=== PATIENT | male | born 1950 | race Caucasian/White ===

== ENCOUNTER 2017-01-27 16:50 | Inpatient (IN) ==
[2017-01-27] MEDS ORDERED: ONDANSETRON 4 MG/2 ML VIAL IV PRN ×2 (17:17→18:28)
[2017-01-27] MEDS ORDERED: SODIUM CHLORIDE 0.9% 500 ML IV STA (17:17)
[2017-01-27] MEDS ORDERED: PANTOPRAZOLE 40 MG VIAL IV STA (17:17)
--- NOTE | 2017-01-27 17:32 | Emergency Department Note ---
Zana Crawford Brooke, am scribing for, and in the presence of, Socrates Oliveira MD 17:26 . Roxanne Crawford James D, MD, personally performed the services described in this documentation, ascribed by Geovanna Spann in my presence, and it is both accurate and complete 729 . Arrival - Arrival Chief Complaint: GI Bleed/Rectal Stated Complaint: black dark stool ED Nursing Triage Note: Pt states that he started having some black stool onset on Tuesday - pt states that he was seen and treated yesterday at Dr Choi - pt was told to come to ER per Dr Choi Mode of Arrival: Ambulatory Limitations: No Limitations Source: Patient, RN Notes Reviewed Time Seen by Provider: 01/27/17 17:18 - History of Present Illness HPI Narrative: Patient is a 66 year old male who presents to the ED with c/o melena that started on Tuesday. Patient says the melena got better on Tuesday but then came back Tuesday. He denies having any bright red blood. He saw Dr. Choi, yesterday, and had blood work and a chest x-ray done. Patient says he was told that he is "borderline anemic." Dr. Choi got Patient an appointment for Dr. Carlson to do a scope on Tuesday but Patient talked to Dr. Choi, today, and he was told to come to the ED. Patient denies taking any iron supplements or Pepto Bismol and says his stool is soft. Patient did take some BC powder over the weekend, however. He denies having any abdominal pain and does not have a history of stomach ulcers. He has no known medical problems. Patient say he does drink a six pack of beer on the weekends. He does not currently take any blood thinners. Onset (ago): day(s) (5) Allergies/Adverse Reactions: Allergies Allergy/AdvReac Type Severity Reaction Status Date / Time No Known Allergies Allergy Unverified 01/27/17 17:00 Review of System - Review of System 12 point system: reviewed and no additional remarkable complaints except as stated - Review of System Constitutional: Absent: fever Respiratory: Absent: respiratory distress Gastrointestinal: Present: melena. Absent: abdominal pain, hematochezia Skin: Absent: rash Medical,Surgical,& Family Hx - Medical History Gastrointestinal: History of: GERD - Social History Smoking Status: Current every day smoker Frequency of Alcohol Use: None Type of Drug Use: None Exam Vital Signs: Vital Signs Temperature 97.1 F L 01/27/17 17:00 Pulse Rate 82 01/27/17 17:00 Respiratory Rate 20 01/27/17 17:00 Blood Pressure 153/84 01/27/17 17:00 O2 Sat by Pulse Oximetry 99 01/27/17 17:00 GENERAL: This is a well-nourished well-developed white male in no apparent distress. VITAL SIGNS: Reviewed HEENT: Head is atraumatic and normocephalic. Pupils are equal round react to light. Extraocular movements are intact. Oropharynx is benign with moist mucous membranes. NECK: Neck is soft and supple without tenderness. There are no masses. There is no lymphadenopathy. LUNGS: Lungs are clear to auscultation. Chest rises symmetrically. There is no chest wall tenderness. CV: Heart is regular rate and rhythm without murmurs rubs or gallops. ABDOMEN: Abdomen is soft, nontender to palpation. There are no abdominal abnormal masses palpated. There is no organomegaly. Bowel sounds are present and active. Rectal: Good tone, no masses, melenic stool, heme positive. SKIN: Skin is warm and dry. No rash. EXTREMITIES: Patient has full range of motion without tenderness. There is no pedal edema. NEUROLOGIC: Awake alert and oriented 4. Cranial nerves II through XII are grossly intact. Motor is 5 over 5 in all extremities bilaterally. Course - Consultations Consultation #1: Discussed with hospitalist. Patient will be admitted to their service. Time: 17:44 Results - Labs Lab Results: I have reviewed the patients labs - Diagnostic Findings Procedure: Abdominal x-ray: image reviewed by me, Chest x-ray: image reviewed by me Disposition Clinical Impression: Acute upper GI bleed Case discussed with: patient Disposition: Still a Patient Condition: Guarded
[2017-01-27 17:42] LABS: Basophils # 0.1 10*3/uL (0.0-0.2); Eosinophils # 0.2 10*3/uL (0.0-0.87); Eosinophils % 2.9 % (0.00-10.9); Hematocrit 32.3 VOL% (42.0-52.0); Hemoglobin 11.1 GM/DL (14.0-18.0); Immature Granulocytes % 0.5 %; Immature Granulocytes Absolute 0.04 #; Lymphocytes # 2.2 10*3/uL (1.4-4.0); Lymphocytes % 27.2 % (21.2-54.2); Mean Corpuscular HGB Conc 34.4 GM/DL (32-36); Mean Corpuscular Hemoglobin 31 PG (27-34); Mean Corpuscular Volume 91.2 FL (87-102); Mean Platelet Volume 10.6 FL (9.6-12.0); Monocytes # 0.9 10*3/uL (0.11-0.8); Monocytes % 11.3 % (1.7-12.7); Neutrophils # 4.5 10*3/uL (1.4-7.4); Neutrophils % 57.1 % (38.7-73.9); Platelet Count 307 T/CUMM (130-400); Red Blood Count 3.54 MC/CUMM (3.8-5.5); Red Cell Distribution Width 16.2 % (9.3-17.3); White Blood Count 7.9 T/CUMM (4-12)
[2017-01-27 17:55] LABS: INR 0.9; PT Patient Result 9.6 SECS; Partial Thromboplastin Time 25.7 SECS (0-40)
[2017-01-27 18:02] LABS: Alanine Aminotransferase 21 U/L (16-61); Albumin 3.1 G/DL (3.4-5.0); Alkaline Phosphatase 68 U/L (45-117); Aspartate Amino Transferase 22 U/L (0-37); Bilirubin,Total < 0.39 MG/DL (0.2-1.0); Blood Urea Nitrogen 10 MG/DL (7-18); Calcium 8.8 MG/DL (8.5-10.1); Glucose 87 MG/DL (74-106); Osmolality,Calculated 270.8 MOS/KG (273-304); Potassium 3.5 MMOL/L (3.5-5.1); Sodium 137 MMOL/L (136-145); Total Protein 6.7 G/DL (6.4-8.3)
[2017-01-27] MEDS ORDERED: PANTOPRAZOLE 40 MG VIAL IV ONE (18:12)
--- NOTE | 2017-01-27 18:14 | EKG Report ---
Stationary ECG Study [facility] ER Test Date: 01/27/2017 6:12:13 PM Pat Name: JANET TAYLOR Department: Room: Gender: M Ramp Supervisor: : 1950 Requested by: Socrates Jean Order Number: [id number] Reading MD: JASON FELIX Intervals [place] Rate: 73 P: 37 UT: 171 QRS: -49 QRSD: 87 T: 37 QT: 400 QTc: 425 Interpretive Statements SINUS RHYTHM POSSIBLE RIGHT VENTRICULAR CONDUCTION DELAY LEFT ANTERIOR FASCICULAR BLOCK Electronically Signed On 01-27-17 20:21:42 CDT by JASON FELIX [email or web address]
[2017-01-27] MEDS ORDERED: ACETAMINOPHEN 325 MG TABLET PO PRN (18:28)
--- NOTE | 2017-01-27 18:30 | Hospitalist History & Physical ---
Assessment and Plan - Time spent with patient Time spent with patient: Greater than 30 minutes (1) Acute upper GI bleed Status: Acute Assessment and plan: H&H stable 11.1 & 32.3. Will admit: start IV fluids: consult GI. repeat a.m. labs. will discuss with Dr Wallace for further recommendations. Current Visit: Yes History of Present Illness Chief complaint: GI bleed History of present illness: Mr. Anton is a 66 year old white white male w/ PMHx GERD and smoker; presented to the ED for c/o dark stools since Tuesday. He reports going to Dr Choi office on Tuesday, labs were obtained and it was reported to him that everything looked good, maybe "borderline anemic". He called Dr Choi office today because he is still having very dark black semi-loose stools and was referred to the ED. Denies taking pepto. Patient denies shortness of breath, dizziness, chest pain, nausea, vomiting, fever or chills. He reports that he was setup for an appointment with DR Carlson for scope on Tuesday. In ED: H&H 11.1 & 32.3, INT 0.9; PT 9.6;Electrolytes within normal range. ADB xray and CXR is pending reports. After discussion with Dr Oliveira in the ED and Dr Wallace with Hospitalist Medicine, it was agreed to admit patient for further evaluation. Patient has no home medications to be reviewed. Allergies Allergy/AdvReac Type Severity Reaction Status Date / Time No Known Allergies Allergy Unverified 01/27/17 17:00 Medical,Surgical,& Family Hx - Medical History Gastrointestinal: History of: GERD - Social History Smoking Status: Current every day smoker Frequency of Alcohol Use: None Type of Drug Use: None Functional capacity: independent ambulation Review of systems: ROS completed and pertinent positives and negatives in the HPI Exam - Constitutional Vitals: Period Temp Pulse Resp BP Sys/Young Pulse Ox Last 24 Hr 97.1 F-97.1 F 80-85 15-20 129-167/78-84 99-100 General appearance: normal weight, no acute distress - Head Head exam: Present: normal inspection - Eye Eye exam: Present: EOMI Pupils: Present: TANNA - ENT ENT exam: Present: normal exam - Neck Neck exam: Present: normal inspection - Respiratory Respiratory exam: Present: clear to auscultation bilaterally. Absent: rhonchi, stridor, wheezes - Cardiovascular Cardiovascular exam: Present: regular rate and rhythm - GI/Abdominal GI/Abdominal exam: Present: normal bowel sounds, soft. Absent: tenderness, rebound - Extremities Exam Extremities exam: Present: normal inspection, full ROM. Absent: edema - Neurological Exam Neurological exam: Present: alert, oriented X3, CN II-XII intact - Psychiatric Psychiatric exam: Present: normal affect, normal mood. Absent: agitated, anxious - Skin Skin exam: Present: normal color, warm, dry Results - Labs CBC & BMP: 01/27/17 17:33 01/27/17 17:33 Lab Results: I have reviewed the past 24 hour labs - Diagnostic Findings Procedure: Abdominal x-ray: pending (waiting report), Chest x-ray: pending ( waiting report)
--- NOTE | 2017-01-27 18:51 | XRay Report ---
XR chest 1V portable Indication: Shortness of breath Comparison: Chest x-ray 08/19/2008. Technique: Portable AP chest was performed. Findings: Borderline cardiomegaly is demonstrated. Central vasculature is stable compared to prior study. This been interval increase in linear interstitial markings in the mid to lower lungs bilaterally. Bones and soft tissues are stable. Impression: 1. Interval worsening of interstitial edema could be considered. 01/27/2017 6:48 PM PROCEDURE INTERPRETED AT [facility] DEPARTMENT OF RADIOLOGY Final Report Signed by: Dr. Prosper Lopez
--- NOTE | 2017-01-27 18:51 | XRay Report ---
XR abdomen complete w decub Indication: Abdominal pain. Comparison: None. Technique: Supine AP abdomen as well as left lateral decubitus image of the abdomen was submitted. Findings: Lung bases are clear. No free intraperitoneal air is suggested. No organomegaly suggested. The bowel gas pattern demonstrates no evidence of acute pathology. Bones and soft tissues demonstrate no evidence of acute pathology. Impression: 1. No active process is demonstrated within the abdomen or pelvis. 01/27/2017 6:47 PM PROCEDURE INTERPRETED AT [facility] DEPARTMENT OF RADIOLOGY Final Report Signed by: Dr. Prosper Lopez
[2017-01-27] MEDS: SODIUM CHLORIDE 0.9% 1,000 ML IV SCH (18:57)
[2017-01-27 20:01] LABS: Basophils # 0.1 10*3/uL (0.0-0.2); Basophils % 0.9 % (0.0-0.8); Eosinophils # 0.2 10*3/uL (0.0-0.87); Eosinophils % 2.6 % (0.00-10.9); Hematocrit 29.9 VOL% (42.0-52.0); Immature Granulocytes % 0.5 %; Immature Granulocytes Absolute 0.04 #; Lymphocytes # 1.8 10*3/uL (1.4-4.0); Lymphocytes % 21.8 % (21.2-54.2); Mean Corpuscular HGB Conc 33.4 GM/DL (32-36); Mean Corpuscular Hemoglobin 31 PG (27-34); Mean Corpuscular Volume 92.6 FL (87-102); Mean Platelet Volume 10.6 FL (9.6-12.0); Monocytes # 0.7 10*3/uL (0.11-0.8); Monocytes % 7.9 % (1.7-12.7); Neutrophils # 5.5 10*3/uL (1.4-7.4); Neutrophils % 66.3 % (38.7-73.9); Platelet Count 282 T/CUMM (130-400); Red Blood Count 3.23 MC/CUMM (3.8-5.5); Red Cell Distribution Width 16.3 % (9.3-17.3); White Blood Count 8.2 T/CUMM (4-12)
[2017-01-27] MEDS: ZALEPLON 5 MG CAPSULE PO PRN (20:27)
[2017-01-27 20:29] LABS: Folate 8.5 NG/ML (5.4-24.0); Vitamin B12 246 PG/ML (211-911)
[2017-01-27 21:15] LABS: Sedimentation Rate-Westergren 44 MM/HR (0-20)
[2017-01-27 23:13] LABS: Hematocrit 27.1 VOL% (42.0-52.0); Hemoglobin 9.3 GM/DL (14.0-18.0)
[2017-01-28 06:11] LABS: Basophils # 0.1 10*3/uL (0.0-0.2); Eosinophils # 0.2 10*3/uL (0.0-0.87); Eosinophils % 3.8 % (0.00-10.9); Hematocrit 28.6 VOL% (42.0-52.0); Hematocrit 28.8 VOL% (42.0-52.0); Hemoglobin 9.7 GM/DL (14.0-18.0); Hemoglobin 9.8 GM/DL (14.0-18.0); Immature Granulocytes % 0.3 %; Immature Granulocytes Absolute 0.02 #; Lymphocytes # 1.6 10*3/uL (1.4-4.0); Lymphocytes % 27.9 % (21.2-54.2); Mean Corpuscular Hemoglobin 31 PG (27-34); Mean Corpuscular Volume 90.6 FL (87-102); Monocytes # 0.6 10*3/uL (0.11-0.8); Monocytes % 10.4 % (1.7-12.7); Neutrophils # 3.3 10*3/uL (1.4-7.4); Neutrophils % 56.6 % (38.7-73.9); Platelet Count 296 T/CUMM (130-400); Red Blood Count 3.18 MC/CUMM (3.8-5.5); Red Cell Distribution Width 16.1 % (9.3-17.3); White Blood Count 5.8 T/CUMM (4-12)
[2017-01-28 06:40] LABS: Calcium 8.6 MG/DL (8.5-10.1); Osmolality,Calculated 280.1 MOS/KG (273-304); Potassium 3.6 MMOL/L (3.5-5.1)
[2017-01-28 08:11] LABS: Hemoglobin A2 (Alkaline) 2.3 % (1.5-3.5)
[2017-01-28] MEDS: SODIUM CHLORIDE 0.9% 1,000 ML IV SCH ×2 (08:15→22:45)
[2017-01-28 08:16] LABS: Hemoglobin A1 (Alkaline) 97.7 % (96.5-98.5)
[2017-01-28] MEDS: PANTOPRAZOLE 40 MG VIAL IV SCH (08:16)
--- NOTE | 2017-01-28 10:28 | Gastrointestinal Consult Note ---
<Chata Navas - Last Filed: 01/28/17 10:36> Assessment and Plan (1) Melena Status: Acute Assessment and plan: 01/28-one-week history of melanoma with associated fatigue however no other complaints. H&H stable at 03/17 with no overt bleeding. Check stools for occult blood. Patient has prior schedule EGD for Tuesday of next week with Dr. Carlson. Check daily H&H. Proceed with EGD today to further evaluate. Plan and addendum to follow by Dr Carlson. Current Visit: Yes History of Present Illness Chief complaint: Melena History of present illness: Mr. Anton is a 66 year old male who was admitted to the hospital on yesterday with findings of anemia and reports of melena patient. Patient states that for the past week he has begun to notice that his stools become progressively darker. He denies any hematochezia associated with this but states that his stools have changed color since Tuesday. He has no prior history of GI bleeding in the past. He denies taking any iron supplements or Pepto-Bismol. Patient denies any recent weight loss, fever or chills. He denies any abdominal pain, nausea or vomiting associated with this. He states other than feeling somewhat fatigued over the last several days that he has had no other associated symptoms. He denies any dyspepsia, dysphagia. Patient presented to Dr. Gregg's office on Tuesday and had lab work done with no abnormalities other than report of being borderline anemic. He called Dr. Gregg's office back on yesterday and informed him of the change in his stool and he was scheduled for an EGD on next Tuesday with Dr. Carlson. However after this was scheduled patient was then advised to come to the emergency room for further evaluation. Patient states that he smokes approximately half a pack of cigarettes a day and drinks on a regular basis however sometimes not every day. He denies any prior history of having stomach ulcers. He denies having any upper scopes done in the past. His last colonoscopy was noted in 2005 with a history of diverticulitis which required percutaneous drainage with findings at that time of diverticulosis and polyps (serrated tubular adenoma). H&H is 03/17 with no elevation in BUN/ creatinine ratio, currently at 10. Home Medications Medication Instructions Recorded Confirmed Type Pantoprazole Tab [Protonix Tab] 40 mg PO DAILY 01/27/17 01/27/17 History Allergies Allergy/AdvReac Type Severity Reaction Status Date / Time No Known Allergies Allergy Unverified 01/27/17 17:00 Medical,Surgical,& Family Hx - Medical History Cardio: Comment Only: Cardiovascular Problems (Right DVT 5 years ago) Gastrointestinal: History of: GERD - Social History Smoking Status: Current every day smoker Frequency of Alcohol Use: None Type of Drug Use: None 12 point system: reviewed and no additional remarkable complaints except as stated - Constitutional Constitutional: Present: as per HPI - EENT Eyes: Present: as per HPI Ears: Present: as per HPI Nose, mouth and throat: Present: as per HPI - Cardiovascular Cardiovascular: Present: as per HPI - Respiratory Respiratory: Present: as per HPI - Gastrointestinal Gastrointestinal: Present: as per HPI, melena - Genitourinary Genitourinary: Present: as per HPI - Musculoskeletal Musculoskeletal: Present: as per HPI - Neurological Neurological: Present: as per HPI - Psychiatric Psychiatric: Present: as per HPI - Endocrine Endocrine: Present: as per HPI - Hematologic/Lymphatic Hematologic/Lymphatic: Present: as per HPI Exam - Constitutional Vitals: Period Temp Pulse Resp BP Sys/Young Pulse Ox Last 24 Hr 97.1 F-98.5 F 67-85 11-20 94-167/53-84 93-100 General appearance: normal weight, no acute distress - Head Head exam: Present: normal inspection, normocephalic - Eye Eye exam: Present: other (Lids and conjunctivae are unremarkable). Absent: scleral icterus - ENT ENT exam: Present: normal exam, normal oropharynx - Neck Neck exam: Present: normal inspection - Respiratory Respiratory exam: Present: clear to auscultation bilaterally. Absent: rales, rhonchi, wheezes - Cardiovascular Cardiovascular exam: Present: regular rate and rhythm. Absent: diastolic murmur , JVD, systolic murmur - GI/Abdominal GI/Abdominal exam: Present: normal bowel sounds, soft. Absent: ascites, distended, mass, organomegaly, tenderness - Extremities Exam Extremities exam: Present: normal inspection, full ROM - Back Exam Back exam: Present: normal inspection - Neurological Exam Neurological exam: Present: alert, oriented X3 - Psychiatric Psychiatric exam: Present: normal affect, normal mood - Skin Skin exam: Present: normal color, warm, dry Results - Labs CBC & BMP: 01/28/17 05:35 01/28/17 05:35 Lab Results: I have reviewed the past 24 hour labs Quality Measures - VTE Contraindication to Pharmacological VTE Prophylaxis: Active Bleeding <Gilbert Carlson - Last Filed: 01/28/17 14:22> History of Present Illness History of present illness: Mr. Anton is a 66 year old male Exam - Constitutional Vitals: Period Temp Pulse Resp BP Sys/Young Pulse Ox Last 24 Hr 97.1 F-98.5 F 67-85 11-20 94-167/53-84 93-100 Results - Labs CBC & BMP: 01/28/17 05:35 01/28/17 05:35
[2017-01-28] MEDS ORDERED: LIDOCAINE 1% 5 ML VIAL ONE (14:21)
[2017-01-28] MEDS ORDERED: PROPOFOL 200 MG/20 ML VIAL IV ONE (14:21)
--- NOTE | 2017-01-28 14:24 | History and Physical Update ---
History and Physical Update - History and Physical H&P was reviewed, the patient examined and there: are no changes in the patients condition since last H&P was completed. - Physical Exam Mental Status: alert and oriented Heart: regular rate and rhythm Lung: clear to auscultation Abdomen: within normal limits Vitals: within normal limits
--- NOTE | 2017-01-28 14:54 | Operative Note ---
Date of procedure: 01/28/17 Pre-op diagnosis: GI bleed with melena Procedure: Procedure: Esophagogastroduodenoscopy Brief clinical abstract: Patient is a 66-year-old male who presents with weakness and recent melena over the last few days. He has had no hematemesis. Hemoglobin was 9 on admission. Indication for procedure: GI bleed with melena Endoscopic findings:[After informed consent was obtained, the patient was placed in the left lateral decubitus position. The gastroscope was inserted in the upper esophagus under direct vision with no resistance encountered. Esophageal mucosa appeared normal with squamocolumnar junction sharply demarcated above a small hiatal hernia. The endoscope was advanced in the stomach which was carefully examined including retroflexed view of the cardia and fundus. There was a moderate amount of bright red blood with some clot in the proximal fundus of the stomach. This was all washed and suctioned to allow good exam. Patient has some prominence of the area gastricae pattern in the stomach. We spent over 20 minutes carefully examining the stomach and no bleeding source was identified. The pyloric channel, duodenal bulb, second and third portion of the duodenum appeared normal. The endoscope was withdrawn back into the stomach and then removed. He appeared to tolerate the procedure well. Impression: #1 probable bleeding source in proximal stomach-vascular lesion/ Dieulafoy's suspected with inability to visualize #2 prominent area gastricae pattern-could indicate portal hypertension Recommendations: Keep on clear liquids and follow clinically for now. If rebleeds, he will need repeat EGD. Anesthesia: MAC Surgeon / Physician: Gilbert Carlson Estimated blood loss: minimal Specimens: none sent Condition: stable Disposition: post procedure unit Results - Labs CBC & BMP: 01/28/17 05:35 01/28/17 05:35 Discharge Plan - Discharge Medications No Action Pantoprazole Tab [Protonix Tab] 40 mg PO DAILY - Follow Up or Referral - Forms/Instructions
--- NOTE | 2017-01-28 15:01 | Anesthesia Post-Op ---
Anesthesia Post OP - Post Ansesthetic Evaluation Patient seen in post op: Yes Resp: within normal limits CV: within normal limits Mental: within normal limits Temp: within normal limits Apbr-Oi-Pbpukjumi: within normal limits Nausea and Vomiting: within normal limits Pain: within normal limits
--- NOTE | 2017-01-28 16:24 | Hospitalist Progress Note ---
Assessment and Plan (1) Acute upper GI bleed Status: Acute Assessment and plan: The patient had vascular lesions found in the stomach on EGD. We will observe the patient again tonight for further bleeding and perhaps he could go home tomorrow. Current Visit: Yes Hospitalist: Subjective Interval history: The patient is found to have some vascular lesions in the stomach. This is apparently the cause of his hematemesis. The patient had esophagogastroduodenoscopy today. There has not been any further bleeding noted. Exam - Constitutional Vitals: Period Temp Pulse Resp BP Sys/Young Pulse Ox Last 24 Hr 97.1 F-98.5 F 66-85 11-20 93-167/53-84 93-100 General appearance: no acute distress - Respiratory Respiratory exam: Present: clear to auscultation bilaterally - Cardiovascular Cardiovascular exam: Present: regular rate and rhythm Results - Labs CBC & BMP: 01/28/17 05:35 01/28/17 05:35 Lab Results: I have reviewed the past 24 hour labs Quality Measures - VTE Contraindication to Pharmacological VTE Prophylaxis: Active Bleeding
[2017-01-28] MEDS: ZALEPLON 5 MG CAPSULE PO PRN (20:40)
[2017-01-29] MEDS: PANTOPRAZOLE 40 MG VIAL IV SCH (08:27)
[2017-01-29] MEDS: SODIUM CHLORIDE 0.9% 1,000 ML IV SCH (09:44)
--- NOTE | 2017-01-29 12:21 | Hospitalist Progress Note ---
Assessment and Plan (1) Acute upper GI bleed Status: Acute Assessment and plan: The patient had vascular lesions found in the stomach on EGD. We will observe the patient again tonight for further bleeding and anticipate he will go home tomorrow. Current Visit: Yes Hospitalist: Subjective Interval history: The patient has no new bleeding stigmata. The patient was seen to have a vascular lesion of the stomach on Tuesday at EGD. The patient has been on clear liquid diet and I am going to advance to a soft diet. If blood counts are stable tomorrow anticipate discharge home with outpatient follow-up scope in a couple of weeks. Exam - Constitutional Vitals: Period Temp Pulse Resp BP Sys/Young Pulse Ox Last 24 Hr 97.6 F-97.9 F 66-99 12-20 93-137/59-81 97-100 General appearance: no acute distress - Respiratory Respiratory exam: Present: clear to auscultation bilaterally - Cardiovascular Cardiovascular exam: Present: regular rate and rhythm - GI/Abdominal GI/Abdominal exam: Present: normal bowel sounds Results - Labs CBC & BMP: 01/28/17 05:35 01/28/17 05:35 Lab Results: I have reviewed the past 24 hour labs Quality Measures - VTE Contraindication to Pharmacological VTE Prophylaxis: Active Bleeding
--- NOTE | 2017-01-29 14:40 | Gastrointestinal Progress Note ---
Assessment and Plan - Time spent with patient Time spent with patient: Greater than 30 minutes (1) Acute upper GI bleed Status: Acute Current Visit: Yes (2) Other specified counseling Status: Acute Current Visit: Yes Exam (Progress Note) - Constitutional Vitals: Period Temp Pulse Resp BP Sys/Young Pulse Ox Last 24 Hr 97.6 F-98.2 F 66-99 12-20 93-150/59-81 95-100 Results - Labs CBC & BMP: 01/28/17 05:35 01/28/17 05:35 Note Addendum: PLEASE NOTE -- automatic citation of patient information is unavoidable in this electronic note. I have made a reasonable effort to review the information cited , but it is not a part of my evaluation, impression, or recommendation unless specifically discussed in the dictated text that follows. As well, voice recognition software was used in the creation of this clinical note. Reasonable effort was made to identify and correct gross errors. Despite proofreading, errors in bi data architect may be present, including nonsense verbiage at times. If you encounter such an error, please contact me at for discussion and correction. -- Tori Chief complaint: upper gastrointestinal bleeding Subjective: the patient is a 66-year-old male seen for follow-up of upper gastrointestinal bleeding. He underwent upper endoscopy yesterday with Dr. Carlson with finding of a possible Dieulafoy lesion in the proximal stomach and diffuse gastritis as well as bright red blood and blood clot. Unfortunately , no active bleeding source was identified. Overnight, one bowel movement was reported with dark stool but no overt bleeding, likely representing old blood. The patient is taking oral nutrition without difficulty. Medications: Tylenol, [place], Zofran, Protonix, [place] Review of Symptoms: 12 point review of symptoms was negative except as noted above Physical examination: Vital Signs: Current vital signs reviewed. General Appearance: well-appearing. Not acutely ill. Head: Normocephalic. Eyes: no scleral icterus. No scleral injection. No conjunctival pallor. Oral Cavity: Odor of breath was normal. No drooling was observed. Lips showed no abnormalities. Lungs: Respiration rhythm and depth was normal. Cardiovascular: Heart rate and rhythm were normal. Abdomen: abdomen was not distended. Abdominal auscultation revealed no abnormalities. Ascites was not discovered. Abdominal palpation revealed no tenderness and no hepatosplenomegaly. Musculoskeletal System: musculoskeletal system was grossly normal. Neurological: level of consciousness was normal. Speech was normal. No coordination/cerebellum abnormalities were noted. Skin: Gen. appearance was normal. Color and pigmentation were normal. No skin lesions were appreciated. Laboratory: what blood count 5.8, hemoglobin 9.7, platelets 296, INR 0.9, ALT 21 , AST 22, alkaline phosphatase 68, albumin 3.1 Radiology: reviewed Impressions: 1. Upper gastrointestinal bleeding -- the patient has remained stable overnight with no overt bleeding. I recommend continued proton pump inhibitor, continued volume management, monitoring blood counts, and transfusion as indicated. If stable, it would be reasonable to discharge tomorrow. 2. Other specified counseling -- Patient seen for greater than 30 minutes. Greater than 50% of this time was spent counseling regarding differential diagnosis, likely diagnosis,, diagnostic and therapeutic options, risks, benefits, and alternatives to procedures and medications, informed consent, and plan of care generally. Patient has expressed understanding and wishes to proceed. Recommendations: -- continued volume management -- continue proton pump inhibitor -- monitor blood counts and transfuse as indicated -- we will continue to follow with you
[2017-01-29] MEDS: ZALEPLON 5 MG CAPSULE PO PRN (20:41)
[2017-01-30 06:32] LABS: Basophils # 0.1 10*3/uL (0.0-0.2); Basophils % 0.9 % (0.0-0.8); Eosinophils # 0.3 10*3/uL (0.0-0.87); Eosinophils % 4.2 % (0.00-10.9); Hematocrit 25.6 VOL% (42.0-52.0); Hemoglobin 8.6 GM/DL (14.0-18.0); Immature Granulocytes % 0.4 %; Immature Granulocytes Absolute 0.03 #; Lymphocytes # 2.3 10*3/uL (1.4-4.0); Mean Corpuscular HGB Conc 33.6 GM/DL (32-36); Mean Corpuscular Hemoglobin 31 PG (27-34); Mean Corpuscular Volume 92.4 FL (87-102); Mean Platelet Volume 11.3 FL (9.6-12.0); Monocytes # 0.7 10*3/uL (0.11-0.8); Monocytes % 9.6 % (1.7-12.7); Neutrophils % 53.9 % (38.7-73.9); Platelet Count 325 T/CUMM (130-400); Red Blood Count 2.77 MC/CUMM (3.8-5.5); Red Cell Distribution Width 16.3 % (9.3-17.3); White Blood Count 7.4 T/CUMM (4-12)
[2017-01-30 07:05] LABS: Calcium 8.5 MG/DL (8.5-10.1); Magnesium 2.1 MG/DL (1.8-2.4); Potassium 3.6 MMOL/L (3.5-5.1)
[2017-01-30] MEDS ORDERED: PANTOPRAZOLE 40 MG TABLET PO SCH (09:00)
[2017-01-30] MEDS: PANTOPRAZOLE 40 MG TABLET PO SCH (09:27)
--- NOTE | 2017-01-30 09:50 | Gastrointestinal Progress Note ---
Assessment and Plan (1) Acute upper GI bleed Status: Acute Current Visit: Yes (2) Other specified counseling Status: Acute Current Visit: Yes Exam (Progress Note) - Constitutional Vitals: Period Temp Pulse Resp BP Sys/Young Pulse Ox Last 24 Hr 98.1 F-99.2 F 71-86 18-20 112-150/61-75 94-96 Results - Labs CBC & BMP: 01/30/17 04:23 01/30/17 04:23 Note Addendum: PLEASE NOTE -- automatic citation of patient information is unavoidable in this electronic note. I have made a reasonable effort to review the information cited , but it is not a part of my evaluation, impression, or recommendation unless specifically discussed in the dictated text that follows. As well, voice recognition software was used in the creation of this clinical note. Reasonable effort was made to identify and correct gross errors. Despite proofreading, errors in marine drafter may be present, including nonsense verbiage at times. If you encounter such an error, please contact me at [phone] for discussion and correction. -- Tori Chief complaint: upper gastrointestinal bleeding Subjective: the patient is a 66-year-old male seen for follow-up of upper gastrointestinal bleeding. The patient reports no overt bleeding but it is noted that his hemoglobin dropped by about 1 g/dL overnight. He has not had nausea or vomiting. He reports that he would prefer to stay overnight for continued monitoring if there is any risk of repeat bleeding. Medications: Tylenol, [place], Zofran, Protonix, [place] Review of Symptoms: 12 point review of symptoms was negative except as noted above Physical examination: Vital Signs: Current vital signs reviewed. General Appearance: well-appearing. Not acutely ill. Head: Normocephalic. Eyes: no scleral icterus. No scleral injection. No conjunctival pallor. Oral Cavity: Odor of breath was normal. No drooling was observed. Lips showed no abnormalities. Lungs: Respiration rhythm and depth was normal. Cardiovascular: Heart rate and rhythm were normal. Abdomen: abdomen was not distended. Abdominal auscultation revealed no abnormalities. Ascites was not discovered. Abdominal palpation revealed no tenderness and no hepatosplenomegaly. Musculoskeletal System: musculoskeletal system was grossly normal. Neurological: level of consciousness was normal. Speech was normal. No coordination/cerebellum abnormalities were noted. Skin: Gen. appearance was normal. Color and pigmentation were normal. No skin lesions were appreciated. Laboratory: white blood count 7.4, hemoglobin 8.6, platelets 325 Radiology: reviewed Impressions: 1. Upper gastrointestinal bleeding -- the patient has remained stable overnight with no overt bleeding. I recommend continued proton pump inhibitor, continued volume management, monitoring blood counts, and transfusion as indicated. If blood counts remains stable overnight, it would be reasonable to discharge home tomorrow. 2. Other specified counseling -- Patient seen for less than 30 minutes. Greater than 50% of this time was spent counseling regarding differential diagnosis, likely diagnosis,, diagnostic and therapeutic options, risks, benefits, and alternatives to procedures and medications, informed consent, and plan of care generally. Patient has expressed understanding and wishes to proceed. Recommendations: -- continued volume management -- continue proton pump inhibitor -- continue monitoring blood counts with further transfusion as indicated -- we will continue to follow with you. Dr. Carlson will resume G.I. care for this patient tomorrow if still admitted
--- NOTE | 2017-01-30 13:10 | Hospitalist Progress Note ---
Assessment and Plan (1) Acute upper GI bleed Status: Acute Assessment and plan: The patient is admitted due to hematemesis and possibly has vascular lesions in the stomach on EGD. We will observe the patient again tonight for further bleeding and anticipate he will go home tomorrow. Dr. Carlson may want to repeat the EGD depending upon blood counts and intubation. Current Visit: Yes Exam - Constitutional Vitals: Period Temp Pulse Resp BP Sys/Young Pulse Ox Last 24 Hr 98.1 F-99.2 F 71-86 18-20 112-132/61-75 94-96 General appearance: no acute distress - Respiratory Respiratory exam: Present: clear to auscultation bilaterally - Cardiovascular Cardiovascular exam: Present: regular rate and rhythm - GI/Abdominal GI/Abdominal exam: Present: normal bowel sounds Results - Labs CBC & BMP: 01/30/17 04:23 01/30/17 04:23 Lab Results: I have reviewed the past 24 hour labs Quality Measures - VTE Contraindication to Pharmacological VTE Prophylaxis: Active Bleeding
[2017-01-30] MEDS: ZALEPLON 5 MG CAPSULE PO PRN (20:32)
[2017-01-31 04:48] LABS: Basophils # 0.1 10*3/uL (0.0-0.2); Basophils % 0.9 % (0.0-0.8); Eosinophils # 0.4 10*3/uL (0.0-0.87); Hematocrit 25.4 VOL% (42.0-52.0); Hemoglobin 8.5 GM/DL (14.0-18.0); Immature Granulocytes % 0.9 %; Immature Granulocytes Absolute 0.06 #; Lymphocytes # 2.1 10*3/uL (1.4-4.0); Lymphocytes % 30.7 % (21.2-54.2); Mean Corpuscular HGB Conc 33.5 GM/DL (32-36); Mean Corpuscular Hemoglobin 31 PG (27-34); Mean Corpuscular Volume 92.7 FL (87-102); Mean Platelet Volume 10.7 FL (9.6-12.0); Monocytes # 0.7 10*3/uL (0.11-0.8); Monocytes % 9.5 % (1.7-12.7); Neutrophils # 3.7 10*3/uL (1.4-7.4); Platelet Count 348 T/CUMM (130-400); Red Blood Count 2.74 MC/CUMM (3.8-5.5); Red Cell Distribution Width 16.3 % (9.3-17.3)
[2017-01-31] MEDS: PANTOPRAZOLE 40 MG TABLET PO SCH (10:20)
--- NOTE | 2017-01-31 11:31 | Discharge Summary ---
Hospital Course - Hospital Course Hospital Course: 66-year-old male presented to Dr. Gregg's office and was noted to be anemic. Patient was set up as an outpatient C Dr. Carlson. Patient presented to the emergency room prior to that appointment with complaints of black tarry stools. His hemoglobin on admission was 11.1 but dropped down to 8.5. Patient was not transfused during this admission. Dr. Carlson was consulted and performed an EGD on January 28, 2017. Probable bleeding source thought to be secondary to vascular lesion/dieulafoys and possible portal hypertension. Patient's hemoglobin has stabilized and is currently on Protonix daily. I will have him follow-up with Dr. Carlson in 2 weeks. Patient continues to have some dark stools but most likely clearing without active bleeding. Workup reported hypotension should be done as an outpatient. I will order a liver ultrasound. Follow-up with Dr. Carlson and Dr. Choi in 2 weeks with a CBC. - Time spent with patient Time with patient DS: Less than 30 minutes (25 min) Discharge Plan - Discharge Data Disposition: Disch To Home/Self Care Condition at Discharge: Stable Discharge Diet: heart healthy Activity: resume usual activities as tolerated Hygiene: no restrictions Weight Bearing at Discharge: full weight bearing - Discharge Medications Continue Pantoprazole Tab [Protonix Tab] 40 mg PO DAILY - Follow Up or Referral Follow Up: Gilbert Carlson MD [Physician] - 2 Weeks pmd, [Other] - 2 Weeks - Forms/Instructions Additional Discharge Instructions: cbc in two weeks, liver ultrasound regarding portal hypertension Exam - Constitutional Vitals: Period Temp Pulse Resp BP Sys/Young Pulse Ox Last 24 Hr 97.8 F-98.9 F 67-86 16-28 116-137/62-90 95-95 General appearance: normal weight - Respiratory Respiratory exam: Present: clear to auscultation bilaterally. Absent: rhonchi, wheezes - Cardiovascular Cardiovascular exam: Present: regular rate and rhythm. Absent: systolic murmur - GI/Abdominal GI/Abdominal exam: Present: normal bowel sounds, soft. Absent: tenderness - Extremities Exam Extremities exam: Present: normal inspection, normal capillary refill - Neurological Exam Neurological exam: Present: alert, oriented X3 - Skin Skin exam: Present: normal color, warm Discharge Results Labs on day of discharge: Labs from last 24 hours 01/31/17 01/30/17 04:15 13:08 WBC 7.0 RBC 2.74 L Hgb 8.5 L 8.6 L Hct 25.4 L MCV 92.7 MCH 31 MCHC 33.5 RDW 16.3 Plt Count 348 MPV 10.7 Neut % (Auto) 53.0 Lymph % (Auto) 30.7 Riley % (Auto) 9.5 Eos % (Auto) 5.0 Baso % (Auto) 0.9 H Neut # (Auto) 3.7 Lymph # (Auto) 2.1 Riley # (Auto) 0.7 Eos # (Auto) 0.4 Baso # (Auto) 0.1 Immature Gran % 0.9 Nucleated RBC % 0.0 Immature Gran # 0.06 Nucleated RBCs # 0.00 Immature Plt Fraction 0.0 DS: Provider Date of admission: 01/27/17 17:47 Primary care physician: . No PCP Attending physician on admission: Tara Dove MD Consults: 01/27/17 18:27 Consult to Physician [CONS] Routine Comment: dark stools since tuesday Consulting Provider: Gilbert Carlson When should Consulting Provider be notified: Now Consult to Specialist Group: Gastroenterology When should Consulting Provider be notified: Now Person Notified: Pete Date Notified: 01/28/17 Time Notified: 09:51 Discharging clinician: Cheryl Jacobson MD
[2017-01-31 11:33] VITALS: BP 147/77
== END 2017-01-31 13:45 | disposition home or self-care (01) | DRG 378 ==
LOC: N.ED 16:50 → SUATTDRO 17:47 → N.EDINP 17:47 → N.4E 18:40
PROVIDERS: ADMIT Family Medicine; ATTEND Internal Medicine

== ENCOUNTER 2019-12-26 05:42 | Inpatient (IN) ==
[2019-12-19 14:12] LABS: Basophils # 0.1 10*3/uL (0.0-0.2); Basophils % 0.6 % (0.0-0.8); Eosinophils # 0.2 10*3/uL (0.0-0.87); Eosinophils % 1.6 % (0.00-10.9); Hemoglobin 12.5 GM/DL (14.0-18.0); Immature Granulocytes % 0.5 %; Immature Granulocytes Absolute 0.05 #; Lymphocytes # 1.8 10*3/uL (1.4-4.0); Lymphocytes % 16.6 % (21.2-54.2); Mean Corpuscular HGB Conc 31.3 GM/DL (32-36); Mean Corpuscular Volume 87.5 FL (87-102); Mean Platelet Volume 10.5 FL (9.6-12.0); Monocytes % 9.5 % (1.7-12.7); Neutrophils % 71.2 % (38.7-73.9); Platelet Count 359 T/CUMM (130-400); Red Blood Count 4.57 MC/CUMM (3.8-5.5); Red Cell Distribution Width 20.6 % (9.3-17.3); White Blood Count 10.6 T/CUMM (4-12)
[2019-12-19 14:23] LABS: PT Patient Result 10.3 SECS (9.8-11.9); Partial Thromboplastin Time 29.9 SECS (23.9-33.8)
[2019-12-19 14:34] LABS: Apearance,Urine CLEAR (Clear); Bilirubin,Urine Negative (Negative); Blood, Urine Negative (Negative); Glucose,Urine (UA) Negative (Negative); Hyaline Casts,Urine 30 /LPF (0-3); Ketones,Urine Negative (Negative); Mucus,Urine Occasional /LPF (Occasional); Nitrite,Urine Negative (Negative); Protein,Urine 100 MG/DL; RBC,Urine 2 /HPF (0-4); Urine Color Amber (Yellow); Urine Specific Gravity 1.017 (1.001-1.035); WBC,Urine 22 /HPF (0-6)
[2019-12-19 14:35] LABS: Albumin 3.1 G/DL (3.4-5.0); Bilirubin,Total 0.5 MG/DL (0.2-1.0); Calcium 9.1 MG/DL (8.5-10.1); Osmolality,Calculated 268.1 MOS/KG (273-304); Total Protein 7.2 G/DL (6.4-8.3)
[2019-12-26] MEDS ORDERED: ceFAZolin 1,000 MG VIAL ONE (06:02)
[2019-12-26] MEDS ORDERED: VANCOMYCIN 1,000 MG VIAL ONE (06:02)
[2019-12-26] MEDS ORDERED: VANCOMYCIN INJ 1,000 MG in SODIUM CHLORIDE 0.9% 250 ML IV ONE (06:30)
[2019-12-26] MEDS ORDERED: ceFAZolin 1,000 MG in SYRINGE 1 EACH IV ONE (06:30)
[2019-12-26] MEDS ORDERED: ROPIVACAINE 0.5% 30 ML VIAL ONE (06:47)
[2019-12-26] MEDS ORDERED: BUPIVACAINE SPINAL 0.75% 2 ML AMP SPINAL ONE (06:47)
[2019-12-26] MEDS ORDERED: LIDOCAINE 1% 5 ML VIAL ONE (06:47)
[2019-12-26] MEDS ORDERED: MIDAZOLAM 2 MG/2 ML VIAL ONE (06:48)
[2019-12-26] MEDS ORDERED: fentaNYL 100 MCG/2 ML VIAL ONE ×2 (06:48→10:57)
[2019-12-26] MEDS ORDERED: DEXAMETHASONE 4 MG/1 ML VIAL ONE ×2 (06:48→10:58)
[2019-12-26] MEDS ORDERED: LACTATED RINGERS 1,000 ML IV SCH (07:30)
[2019-12-26] MEDS ORDERED: ONDANSETRON 4 MG/2 ML VIAL IV PRN ×2 (09:07→10:51)
[2019-12-26] MEDS ORDERED: LACTULOSE 20 GM/30 ML UDCUP PO PRN (09:07)
[2019-12-26] MEDS ORDERED: diphenhydrAMINE CAP 25 MG CAPSULE PO PRN (09:07)
[2019-12-26] MEDS ORDERED: PROMETHAZINE 25 MG/1 ML VIAL IM PRN (09:07)
[2019-12-26] MEDS ORDERED: BISACODYL 10 MG SUPP RECTAL PRN (09:07)
[2019-12-26] MEDS: HYDROmorphone 2 MG/1 ML VIAL IV PRN ×4 (10:55→11:19)
[2019-12-26] MEDS ORDERED: propofoL 200 MG/20 ML VIAL IV ONE (10:57)
[2019-12-26] MEDS ORDERED: KETAMINE 500 MG/10 ML VIAL ONE (10:57)
[2019-12-26] MEDS ORDERED: ePHEDrine 50 MG/ML VIAL ONE (10:58)
[2019-12-26] MEDS ORDERED: SEVOFLURANE 1 UNIT/15 MINUTE INH ONE (10:58)
[2019-12-26] MEDS ORDERED: ACETAMINOPHEN 1,000 MG/100 ML VIAL IV ONE (10:58)
[2019-12-26] MEDS: ceFAZolin 2,000 MG in PREMIX 1 EACH IV SCH ×2 (13:01→21:23)
[2019-12-26] MEDS: MORPHINE 4 MG/1 ML VIAL IV PRN ×2 (15:08→19:37)
[2019-12-26] MEDS: TEMAZEPAM 7.5 MG CAPSULE PO PRN (21:21)
[2019-12-26] MEDS: DOCUSATE SODIUM 100 MG CAPSULE PO SCH (21:21)
[2019-12-26] MEDS: FONDAPARINUX 2.5 MG/0.5 ML SYRINGE SUBCUT SCH (21:23)
[2019-12-26] MEDS: MAGNESIUM HYDROXIDE SUSP 30 ML UDCUP PO PRN ×2 (22:07→22:09)
[2019-12-27] MEDS: MORPHINE 4 MG/1 ML VIAL IV PRN ×7 (00:11→22:18)
[2019-12-27 04:12] LABS: Basophils % 0.1 % (0.0-0.8); Hematocrit 34.4 VOL% (42.0-52.0); Hemoglobin 10.9 GM/DL (14.0-18.0); Immature Granulocytes % 0.4 %; Immature Granulocytes Absolute 0.06 #; Lymphocytes % 7.3 % (21.2-54.2); Mean Corpuscular HGB Conc 31.7 GM/DL (32-36); Mean Corpuscular Volume 87.3 FL (87-102); Mean Platelet Volume 10.5 FL (9.6-12.0); Monocytes % 8.4 % (1.7-12.7); Neutrophils % 83.8 % (38.7-73.9); Platelet Count 216 T/CUMM (130-400); Red Blood Count 3.94 MC/CUMM (3.8-5.5); Red Cell Distribution Width 19.2 % (9.3-17.3); White Blood Count 13.5 T/CUMM (4-12)
[2019-12-27 04:25] LABS: Calcium 8.9 MG/DL (8.5-10.1); Osmolality,Calculated 275.7 MOS/KG (273-304)
[2019-12-27 04:27] LABS: Risk Ratio 2.13; VLDL CHOLESTEROL 15.8 MG/DL
[2019-12-27 04:30] LABS: % Iron Saturation 24.6 % (18-50); Ferritin 97.8 ng/ml (26-388)
[2019-12-27 05:39] LABS: Folate 5.4 NG/ML (5.4-24.0); Vitamin B12 301 PG/ML (211-911)
[2019-12-27 06:30] LABS: Sedimentation Rate-Westergren 65 MM/HR (0-20)
[2019-12-27] MEDS: DOCUSATE SODIUM 100 MG CAPSULE PO SCH ×2 (08:03→20:11)
[2019-12-27] MEDS: PANTOPRAZOLE 40 MG TABLET PO SCH (08:03)
[2019-12-27 08:52] LABS: Hemoglobin A1 (Alkaline) 97.7 % (96.5-98.5); Hemoglobin A2 (Alkaline) 2.3 % (1.5-3.5)
[2019-12-27] MEDS: NICOTINE 21 MG/24 HR PATCH TRANSDERM SCH (14:32)
[2019-12-27] MEDS: FONDAPARINUX 2.5 MG/0.5 ML SYRINGE SUBCUT SCH (20:11)
[2019-12-27] MEDS: TEMAZEPAM 7.5 MG CAPSULE PO PRN (21:08)
[2019-12-28] MEDS: MORPHINE 4 MG/1 ML VIAL IV PRN ×3 (03:49→12:56)
[2019-12-28] MEDS: DOCUSATE SODIUM 100 MG CAPSULE PO SCH (08:29)
[2019-12-28] MEDS: NICOTINE 21 MG/24 HR PATCH TRANSDERM SCH (08:29)
[2019-12-28] MEDS: PANTOPRAZOLE 40 MG TABLET PO SCH (08:29)
[2019-12-28 11:47] VITALS: BP 151/64
[2019-12-28] MEDS: FONDAPARINUX 2.5 MG/0.5 ML SYRINGE SUBCUT SCH (14:45)
== END 2019-12-28 15:20 | disposition home health service (06) | DRG 470 ==
LOC: N.OR 05:42 → N.SDSINP 05:44 → N.3E 12:00
PROVIDERS: ADMIT Orthopaedic Surgery; ATTEND Orthopaedic Surgery